=== PATIENT | female | born 1990 | race Caucasian/White ===

== ENCOUNTER 2016-06-03 10:30 | Emergency (ER) | payer MEDICAID ==
[~2016-06-03] VITALS: Ht 160 cm; Wt 77.0 kg
[2016-06-03] MEDS ORDERED: LORA2VIA33 IJ (10:42)
[2016-06-03] MEDS ORDERED: KETOROLAC 30MG/ML VIAL IV STA (10:59)
[2016-06-03] MEDS ORDERED: SODIUM CHLORIDE 0.9% 1,000 ML IV ONE (10:59)
[2016-06-03 11:31] LABS: CLARITY URINE CLEAR (CLEAR); COLOR URINE YELLOW (YELLOW); GLUCOSE URINE NEGATIVE (NEGATIVE); KETONES URINE TRACE (NEGATIVE); LEUKOCYTE ESTERASE URINE TRACE (NEGATIVE); NITRITE URINE NEGATIVE (NEGATIVE); OCCULT BLOOD URINE 2+ (NEGATIVE); PROTEIN URINE TRACE (NEGATIVE); SPECIFIC GRAVITY URINE 1.027 (1.005-1.030)
[2016-06-03 11:36] LABS: BASOPHILS % 0.4 % (0.0-2.0); EOSINOPHILS % 0.3 % (0.0-5.0); HEMATOCRIT. 40.2 % (36.0-48.0); HEMOGLOBIN. 13.9 g/dL (12.0-16.0); LYMPHOCYTES % 16.1 % (20.0-50.0); MEAN CORPUSCULAR HGB CONC 34.6 g/dL (31.0-37.0); MEAN CORPUSCULAR VOLUME 86.6 fL (81.0-99.0); MEAN PLATELET VOLUME 8.1 fl (7.4-10.4); MONOCYTES % 5.2 % (2.0-8.0); PLATELET 254 x1000/uL (130-400); RED BLOOD CELL COUNT 4.64 mill/uL (4.2-5.4); RED CELL DISTRIBUTION WIDTH 13.2 % (11.6-14.6); WHITE BLOOD COUNT 7.8 x1000/uL (4.5-11.0)
[2016-06-03 11:39] LABS: CHLORIDE 106 mEq/L (98-107); INDEX HEMOLYSI 1 (1-3); INDEX ICTERIC 1 (1-4); INDEX LIPEMIC 1 (1-3)
[2016-06-03 11:41] LABS: BACTERIA URINE 2+; MUCUS URINE 2+ /lpf (< = 2+); SQUAMOUS EPITHELIAL CELL URINE 2+ /lpf (RARE/1+)
[2016-06-03 11:41] LABS: PROTHROMBIN TIME 10.7 sec
[2016-06-03 11:43] LABS: ALBUMIN 3.8 g/dL (3.4-5.0); ANION GAP 10; CARBON DIOXIDE 29 mEq/L (21-32); UREA NITROGEN BLOOD 10 mg/dL (7-21)
[2016-06-03 11:47] LABS: ALANINE AMINOTRANSFERASE 29 IU/L (13-61); eGFR > 60 mL/min (>60)
[2016-06-03 12:01] LABS: CALCIUM 8.8 mg/dL (8.5-10.1)
[2016-06-03 12:14] VITALS: BP 106/81
== END 2016-06-03 12:48 | disposition home or self-care (01) ==
LOC: ER 10:31
DX: R55 Syncope and collapse (principal); S09.90XA Unspecified injury of head, initial encounter; F41.9 Anxiety disorder, unspecified; Z79.899 Other long term (current) drug therapy; W19.XXXA Unspecified fall, initial encounter; Y93.01 Activity, walking, marching and hiking; Y92.89 Other specified places as the place of occurrence of the external cause; Y99.8 Other external cause status
CPT/HCPCS: 36415; 80053; 81001; 81025; 85025; 85610; 93005; 96361; 96374; 99285; J1885; J7030; Z7610